=== PATIENT | female | born 1985 | race Caucasian/White ===

== ENCOUNTER → 2018-05-29 | Outpatient (CLI) | payer OTHER | LOC: BMCIMAGING 11:37 | PROVIDERS: ATTEND Podiatrist Foot & Ankle Surgery | DX: M79.672 Pain in left foot (principal); M89.8X8 Other specified disorders of bone, other site ==

== ENCOUNTER 2018-08-24 05:41 | Day surgery (SDC) | payer OTHER ==
--- NOTE | 2018-08-23 21:11 | PDGENHP ---
History and Physical - Chief Complaint Right Hip Pain - History of Present Illness 1. Bilateral~Femoroacetabular impingement (RUI) Mixed type; with resultant labral tear; RIGHT MORE SYMPTOMATIC 2. History of Left Hip Arthroscopy; 07/05/2017 3. ~~Sacroiliac Joint Pain; R>L 4.~~~Non-specified eating disorder 5.~~~Left 2nd metatarsal stress fracture~(unclear etiology) 6.~~~History of Left femoral neck stress fracture 2016 (running) HISTORY OF PRESENT ILLNESS: Inésis a 33 y.o.~very~~active female~who I have had the pleasure to consult on today. 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 ~Inésenjoys running, yoga, cycling and hiking. Deidra's~bilateral~hip pain (RIGHT>LEFT)~started July 2017, with~no~ recalled trauma or injury, and with no~previous complaints. Inésdoes not have~a known history of hip dysplasia. Left Hip Arthroscopy: 07/05/2017 Dr. Da Barnard in [place]. (80-90 % improved from surgery) ~A month ago she twisted her Left hip which caused sharp pain that has not abated. Presentation today is of~anterior, posterior~right~hip and anterior Left Hip pain.~~The hip~does not~wake her~at night and does~click and catch on her. Sitting~can be uncomfortable~for her.~Inésdoes~report suffering from lower back pain episodes. Inéshas~participated in physical therapy and has~tried other conservative measures including cortisone~hip injection~(immediate and two weeks sustained relief)~.~She~has not~received sufficient symptomatic improvement. Inéshas not~utilized medication for pain management. Inésunderstands that she~has a hip and pelvis problem which should be researched and wishes to get a better understanding of her~hip status, followed by an establishment of a treatment strategy, hoping she~would be able to get back to her~well being active life. History: Past medical history:~~ Eating disorder Relevant familial history:~None which is relevant~ Past surgical history:~ No. Surgery Anesthesia 1 Left Hip arthroscopy general Inésdescribes problematic issues with general anesthesia which includes nausea. I have reviewed, verified and agree with the past medical, surgical, family and social history. Current Medications:~has a current medication list which includes the following prescription(s): buspirone and fluoxetine hcl. ALLERGIES:~is allergic to macrobid [nitrofurantoin] and sulfa (sulfonamide antibiotics). Objective: Physical Examination: Inésis 5~feet 6~inches tall and weighs 160~Lbs. Inésis AAO x3; she ~is well-nourished, in NAD. Skin is warm and dry. ~Breathing is non-labored. ~ CV with RRR by pulse. Abdomen is soft, NTND. Currently,~she~walks with a normal~gait. Trendelenburg sign is~negative~and proprioception is reduced,~left~sides. She~presents with mild~signs of joint laxity. Beightons Score:~3 (knees, touching floor) Lower spine examination is~negative~for sciatic or femoral nerve irritation with negative~SLR &~femoral stretch tests. Range of motion of the spine is normal~for flexion, extension, and rotations, with no~associated pain. Strength, Sensation and pulses are~normal -~bilaterally Ankles and knees exams are~normal~and no~mal-alignment is evident. She~has no leg length discrepancy. Thigh circumference is~symmetric~with no evidence for muscle atrophy~on both~ sides. Hip ROM (degrees): FL ER At 90~hip FL IR At 90~hip FL AB AD EX IR Neutral hip ER Neutral hip R 105 50 2 40 10 10 40 40 L 100 50 10 35 10 10 45 35 Specific hip and pelvis tests: Impingement Test JOCELYN Roll Add. Longus R +++ Negative + Negative L +++ Negative Negative +++ Glut. Med ITB Posterior Imp R Negative 5/5 strength Negative 5/5 strength Negative L Negative 5/5 strength Negative 5/5 strength Negative Squeeze test measured~strong Bony Symphysis pubis is~pain free~to touch while concentric activity of the rectus abdominis, does not~produce pain at its insertion. Ilio Psos specific tests are~negative for pain during cycling for~the right hip~ and no snap. HF has~pain, good strength~~both hips. Right anterior/posterior~capsule tenderness. LEFT POSTERIOR CAPSULE~tenderness. Greater trochanteric burse is~painful~on the left hip. Piriformis tests: FAIR is~negative,~with no~local signs of neuritis related to sciatic nerve. SIJs examination is~produces pain on~both sides~(R>>L)~with~normal~JOCELYN in relation and local tenderness. Hamstrings tests are~negative~functional contraction and negative~tendinopathy both hips. On a daily basis, the following percentages reflect~Deidra's overall total pain: Deep hip:~60% Right SIJ:~40% Imaging: Radiology studies which I have personally reviewed, analyzed and measured are below: XR: AP of the hip and pelvis: Performed in a~good~technique Coccyx to pubic symphysis distance~2.2~cm. 0~degrees [place] Lines are~preserved. Minimal~Pathological signs are seen in the Symphysis Pubis. Minimal~Pathological signs are seen at the Ischial tuberosity. ~ Specific measurements show: NSA~ LCE Sourcil~Angle Sharp's angle Lat. Cam Lat. Pincer C.Over~sign Head~Coverage % ATDmm R N 37 -5 42 + + 12-1 N N L N 31 -2 36 - - - N N Pos. wall sign ISS NAD ~~Dysplasia Comments R Negative Negative 7.1~mm Negative L Negative Negative 13~mm Negative Sclerosis Sup. Lat. OA Cysts Joint Space-WBZ Joint Space-Medial R Negative Negative Negative 4.2~mm 4.2~mm L Negative Negative Negative 3.8~mm 3.8~mm X Table lateral: Anterior cam lesion is~seen~on both hips. Alpha Angle: ~ Right~55~dergrees Left~46~degrees MRI and CT was done in [place], she does not have these images with her today. Surgical images~from~Left Hip Arthroscopy show an everted labral repair with compromised seal. Impression and plan:Fidel Gay~is a 33 y.o.~active female~suffering from symptomatic Bilateral~hip pain due to Bilateral~Femoroacetabular impingement (RUI) Cam type,~with~ resultant labral tear~causing significant disability to her~and altering her~ sport and life activities. Physical examination, imaging, and~her~story correspond with the diagnosis mentioned above. I explained that femoroacetabular impingement (RUI) arises due to a bony or soft tissue conflict between the femur (ball) and acetabulum (socket) caused by an abnormality in the shape of the hip joint. Over time, repetitive impingement can result in damage to the labrum and adjacent surface cartilage within the socket, ultimately giving rise to progressive osteoarthritis of the hip. I explained that although a labral tear can be a source of pain, it is rarely the root of the problem and typically occurs secondary to an underlying abnormality in the shape and mechanics of the hip joint. ~ I reviewed conservative treatment options for RUI including activity modification to avoid positions of impingement, physical therapy, non-steroidal anti-inflammatory medications, and various injections (corticosteroid and PRP) aimed at reducing inflammation in the hip joint or/and preventing dynamic impingement. PRP injections may promote healing and reduce symptoms in certain cases but it will not repair chronically damaged tissue. Although these measures may help to buy time and reduce current level of symptoms, they are not a definitive solution to the problem given the underlying abnormality in the shape of the hip joint. Patients who have failed conservative management and continue to experience symptoms are candidates for hip arthroscopy, a minimally invasive surgery that can definitively address the underlying problem. Hip arthroscopy typically includes treating the labrum with either repair or reconstruction of the torn labrum; as well as addressing the underlying abnormalities by restoring the normal shape to the hip joint. ~If the cartilage is damaged a Microfracture surgical procedure may also be necessary to help stimulate the growth of fibrocartilage. ~If a patient requires a labral reconstruction or a Microfracture, the initial rehabilitation from the surgery may take longer, but the custodial results are typically favorable. I reviewed the technical aspects of hip arthroscopy including risks, benefits, and expected course of recovery.~Deidra~understands that hip arthroscopy is a minimally invasive outpatient procedure carried out through small incisions on the outer aspect of the hip joint. During surgery, the labral tear will be identified and either repaired or reconstructed~using bone anchors and suture material. Additionally, any excessive bone will be removed with a high-speed rohith to reshape the hip joint and restore normal anatomy. Risks include infection, bleeding, injury to nearby nerves or vessels, stiffness, persistent pain, instability, venous thromboembolic disease, and traction related complications including temporary foot numbness. Rarely, revision surgery may be required to address these problems. Overall recovery takes approximately 4~ 8~months depending on the extent of damage and degree of repair. In the event that the labral tissue quality is inadequate for successful repair and healing,~Inésunderstands that a labral reconstruction will be performed. This procedure entails placing a cadaver tissue graft within the hip joint and stabilizing it with bone anchors to build a new labrum. The overall recovery time for labral reconstruction is similar to that of labral repair, although the surgical procedure takes longer to perform. Inéswill review the info presented. In order to obtain more detailed information regarding the alignment, orientation, and shape of the bony hip and pelvis I will order a CT scan to be performed. The results of the CT scan, including femoral torsion and acetabular version measured values and 3D images, will aid me in deciding on the best treatment strategy and surgical pre-planning. In order to better evaluate the soft tissues and cartilage of the hip joint, I will order an MRI scan. We will refer Deidra to Dr. Segundo to evaluate for SI Joint injection. Deidra~will contact us if she~wishes to pursue further treatment in the future. Inésis happy with this plan. I have also supplied~her~with handouts, outlining the expected surgical treatment and rehab involved. I wish~Inésall the best, ~~ Sam Zendejas, PAC History Information I have personally reviewed and updated: medical history Review of Systems Review of Systems: Physical Exam Physical Exam:
[2018-08-24] MEDS ORDERED: PREGABALIN 150 MG CAP PO ONE (05:56)
[2018-08-24] MEDS ORDERED: ACETAMINOPHEN 500 MG TAB PO ONE (05:56)
[2018-08-24] MEDS ORDERED: ceFAZolin 2 GM/DEXTROSE 100 ML IV ONE (05:56)
[2018-08-24] MEDS ORDERED: LIDOCAINE 1% 2 ML INJ ID PRN (05:57)
[2018-08-24] MEDS ORDERED: LR 1,000 ML IV ONE (05:57)
[2018-08-24] MEDS ORDERED: MIDAZOLAM 2 MG/2 ML VIAL IVP ONE (07:07)
--- NOTE | 2018-08-24 07:07 | PDANEPAE ---
ANE History of Present Illness R Hip DJD, R hip arthroscopy ANE Past Medical History - Cardiovascular History Hx Hypertension: No Hx Arrhythmias: No Hx Chest Pain: No Hx Coronary Artery / Peripheral Vascular Disease: No Hx CHF / Valvular Disease: No Hx Palpitations: No - Pulmonary History Hx COPD: No Hx Asthma/Reactive Airway Disease: No Hx Recent Upper Respiratory Infection: No Hx Oxygen in Use at Home: No Hx Sleep Apnea: No Sleep Apnea Screening Result - Last Documented: Negative - Neurologic History Hx Cerebrovascular Accident: No Hx Seizures: No Hx Dementia: No - Endocrine History Hx Diabetes: No - Renal History Hx Renal Disorders: No - Liver History Hx Hepatic Disorders: No - Neurological & Psychiatric Hx Hx Neurological and Psychiatric Disorders: Yes Neurological / Psychiatric History Comment: recovery from eating disorder - Cancer History Hx Cancer: No - Congenital Disorder History Hx Congenital Disorders: No - GI History Hx Gastrointestinal Disorders: No - Surgical History Prior Surgeries: left hip scope ANE Review of Systems Review of Systems: - Exercise capacity METS (RN): 5 METS ANE Patient History - Allergies Allergies/Adverse Reactions: nitrofurantoin [From Macrobid] Allergy (Unknown, Verified 08/23/18 21:13) Sulfa (Sulfonamide Antibiotics) Allergy (Verified 08/23/18 21:18) - Home Medications Home Medications: Abilify 08/24/18 [Last Taken 08/23/18 21:30] FLUoxetine 08/24/18 [Last Taken 08/23/18 21:30] ZYRTEC 08/24/18 [Last Taken 08/23/18 21:30] traZODone 08/24/18 [Last Taken 08/23/18 21:30] - NPO status NPO Since - Liquids (Date): 08/23/18 NPO Since - Liquids (Time): 20:00 NPO Since - Solids (Date): 08/23/18 NPO Since - Solids (Time): 18:30 - Smoking Hx Smoking Status: Never smoked - Family Anes Hx Family Hx Anesthesia Complications: none ANE Labs/Vital Signs - Vital Signs Blood Pressure: 104/65 Heart Rate: 59 Respiratory Rate: 18 O2 Sat (%): 97 Height: 167.64 cm Weight: 72.575 kg ANE Physical Exam - Airway Neck exam: FROM Mallampati Score: Class 1 Mouth exam: normal dental/mouth exam - Pulmonary Pulmonary: no respiratory distress - Cardiovascular Cardiovascular: regular rate and rhythym - ASA Status ASA Status: II ANE Anesthesia Plan Anesthesia Plan: general endotracheal anesthesia Total IV Anesthesia: Yes
[2018-08-24] MEDS ORDERED: PROPOFOL/EMULSION 500 MG/50 ML BOTTLE IV ONE ×4 (07:14→09:14)
[2018-08-24] MEDS ORDERED: REMIFENTANIL HCL 1 MG VIAL ONE ×2 (07:14)
[2018-08-24] MEDS ORDERED: SCOPOLAMINE HYDROBROMIDE 1 MG/3 DAYS PATCH TD SCH (07:15)
[2018-08-24] MEDS ORDERED: EPINEPHrine 30 MG/30 ML MDV (0.1 MG/0.1 ML) ONE (07:31)
[2018-08-24] MEDS ORDERED: BUPIVACAINE/EPI 0.25% 30 ML SDV ONE (07:35)
[2018-08-24] MEDS ORDERED: DEXAMETHASONE 4 MG/ML VIAL ONE (08:28)
[2018-08-24] MEDS ORDERED: LIDOCAINE HCL 160 MG/4 ML LTA KIT TP ONE (08:28)
[2018-08-24] MEDS ORDERED: ROCURONIUM 50 MG/5 ML VIAL ONE (08:28)
[2018-08-24] MEDS ORDERED: ONDANSETRON 4 MG/2 ML VIAL ONE (08:28)
[2018-08-24] MEDS ORDERED: PHENYLEPHRINE 10 MG/ML SDV ONE (08:28)
[2018-08-24] MEDS ORDERED: SUGAMMADEX SODIUM 200 MG/2 ML VIAL IVP ONE (10:48)
[2018-08-24] MEDS ORDERED: NALOXONE HCL 0.4 MG/ML INJ IVP PRN (11:11)
[2018-08-24] MEDS ORDERED: PROMETHAZINE HCL 25 MG/ML INJ IVP PRN (11:11)
[2018-08-24] MEDS ORDERED: LR 500 ML IV PRN (11:11)
[2018-08-24] MEDS ORDERED: HYDROmorphONE/DILAUDID 2 MG/ML INJ IVP PRN (11:11)
[2018-08-24] MEDS ORDERED: MEPERIDINE 25 MG/0.5 ML AMP IVP PRN (11:11)
--- NOTE | 2018-08-24 11:12 | POSTANESTH ---
Post Anesthetic Evaluation Cardiovascular Status: Normal, Stable Respiratory Status: Normal, Stable Level of Consciousness/Mental Status: Can Participate in Eval, Mildly Sleepy, Arousable Pain Control: Adequate, Prn Tx Ordered Nausea/Vomiting Control: Adequate, Prn Tx Ordered Complications Possibly Related to Anesthesia: None Noted
[2018-08-24] MEDS ORDERED: MEPERIDINE 25 MG/0.5 ML AMP ONE (11:19)
[2018-08-24] MEDS ORDERED: fentaNYL 100 MCG/2 ML INJ ONE (11:19)
--- NOTE | 2018-08-24 11:19 | POSTOPPROG ---
Post Op Note Date of Operation: 08/24/18 Surgeon: Tyler Mas Deputy District Customs Director: Dr. Vaughn Anesthesia: GET(General Endotracheal) Pre-op Diagnosis: Right URI Post-op Diagnosis: Same Procedure: Right Hip Arthroscopy Inf/Abcess present in the surg proc area at time of surgery?: No
[2018-08-24] MEDS: fentaNYL 100 MCG/2 ML INJ IVP PRN ×2 (11:30→11:41)
[2018-08-24] MEDS ORDERED: oxyCODONE IR 5 MG TAB ONE ×2 (11:43→12:37)
[2018-08-24] MEDS ORDERED: HYDROmorphONE/DILAUDID 2 MG/ML INJ ONE (11:43)
[2018-08-24] MEDS: oxyCODONE IR 5 MG TAB PO PRN ×2 (11:51→12:39)
[2018-08-24 13:06] VITALS: BP 111/71
[2018-08-27] MEDS ORDERED: PATCH REMOVAL 1 EA PATCH TD SCH (07:08)
== END 2018-08-24 13:06 | disposition home or self-care (01) ==
LOC: FSGY 05:41
PROVIDERS: ATTEND Orthopaedic Surgery Sports Medicine
PROC: 0SB94ZZ Excision of Right Hip Joint, Percutaneous Endoscopic Approach (ICD-10-PCS; principal; 2018-08-24 07:15)
PROC: 0SQ94ZZ Repair Right Hip Joint, Percutaneous Endoscopic Approach (ICD-10-PCS; principal; 2018-08-24 07:15)
PROC: BQ10ZZZ Fluoroscopy of Right Hip (ICD-10-PCS; principal; 2018-08-24 07:15)
DX: M25.851 Other specified joint disorders, right hip (principal); S73.191D Other sprain of right hip, subsequent encounter; M65.9 Synovitis and tenosynovitis, unspecified; Z88.0 Allergy status to penicillin
CPT/HCPCS: C1713; J0171; J0690; J1100; J1170; J1200; J2175; J2250; J2370; J2405; J2704; J3010

== ENCOUNTER 2018-11-20 12:12 | Day surgery (SDC) | payer OTHER | END 2018-11-20 18:30 | disposition home or self-care (01) | LOC: FSGY 12:12 ==